=== PATIENT | female | born 1995 | race Caucasian/White ===

== ENCOUNTER 2017-11-02 22:30 | Outpatient (CLI) | payer MEDICAID ==
[2017-11-02 23:26] LABS: ADD UMIC YES; UR ASCORBIC ACID NEGATIVE (NEGATIVE); UR BACTERIA FEW /HPF (NONE SEEN); UR BILIRUBIN (Dip) NEGATIVE (NEGATIVE); UR BLOOD (Dip) NEGATIVE (NEGATIVE); UR CLARITY SLIGHTLY CLOUDY (CLEAR); UR COLOR YELLOW (YELLOW); UR GLUCOSE (Dip) NEGATIVE (NEGATIVE); UR KETONES (Dip) NEGATIVE (NEGATIVE); UR LEUKOCYTE ESTERASE (Dip) 2+ Leu/ul (NEGATIVE); UR NITRITE (Dip) NEGATIVE (NEGATIVE); UR RBC 2 /HPF (0-5); UR SQUAMOUS EPITHELIAL CELL FEW /HPF (FEW); UR TOTAL PROTEIN (Dip) 1+ mg/dl (NEGATIVE); UR UROBILINOGEN (Dip) NEGATIVE (NEGATIVE); UR WBC 34 /HPF (0-5)
[2017-11-02] MEDS: ACETAMINOPHEN 325 MG TAB PO (23:54)
[2017-11-03 05:51] LABS: ADD MAN DIFF? NO
[2017-11-03 05:58] LABS: WHITE BLOOD COUNT 11.8 10^3/ul (4.8-10.8)
[2017-11-03 05:58] LABS: BASOPHILS % 0.3 % (0.0-2.0); HEMATOCRIT 29.7 % (37.0-47.0); HEMOGLOBIN 9.9 g/dl (12.0-16.0); LYMPHOCYTES # 1.2 10^3/ul (0.8-2.9); LYMPHOCYTES % 9.9 % (15.0-51.0); MEAN CORPUSCULAR HEMOGLOBIN 29.1 pg (29.0-33.0); MEAN CORPUSCULAR HGB CONC 33.3 g/dl (32.0-37.0); MEAN CORPUSCULAR VOLUME 87.4 fl (82.0-101.0); MEAN PLATELET VOLUME 10.6 fl (7.4-10.4); MONOCYTE # 0.9 10^3/ul (0.3-0.9); MONOCYTES % 7.2 % (0.0-11.0); NEUTROPHIL # 9.7 10^3/ul (1.6-7.5); NEUTROPHILS % 82.2 % (39.0-77.0); PLATELET COUNT 242 10^3/UL (140-415); RED CELL DISTRIBUTION WIDTH 14.6 % (11.5-14.5)
== END 2017-11-03 06:40 | disposition home or self-care (01) ==
LOC: OBT 22:30 → L-D 22:31
DX: O26.892 Other specified pregnancy related conditions, second trimester (principal); Z3A.21 21 weeks gestation of pregnancy; R10.2 Pelvic and perineal pain
CPT/HCPCS: 36415; 76705; 81001; 85025; 87086

== ENCOUNTER 2017-11-06 07:59 | Inpatient (IN) | payer MEDICAID ==
[2017-11-06 08:39] LABS: ADD MAN DIFF? NO
[2017-11-06] MEDS: ACETAMINOPHEN 500 MG TAB PO (08:41)
[2017-11-06 08:43] LABS: ABNORMAL IP MESSAGE 1; BASOPHILS % 0.1 % (0.0-2.0); HEMATOCRIT 30.8 % (37.0-47.0); HEMOGLOBIN 10.4 g/dl (12.0-16.0); LYMPHOCYTES # 0.6 10^3/ul (0.8-2.9); LYMPHOCYTES % 4.1 % (15.0-51.0); MEAN CORPUSCULAR HEMOGLOBIN 28.9 pg (29.0-33.0); MEAN CORPUSCULAR HGB CONC 33.8 g/dl (32.0-37.0); MEAN CORPUSCULAR VOLUME 85.6 fl (82.0-101.0); MEAN PLATELET VOLUME 10.9 fl (7.4-10.4); MONOCYTE # 1.1 10^3/ul (0.3-0.9); NEUTROPHIL # 11.9 10^3/ul (1.6-7.5); NEUTROPHILS % 87.4 % (39.0-77.0); PLATELET COUNT 185 10^3/UL (140-415); RED CELL DISTRIBUTION WIDTH 14.6 % (11.5-14.5)
[2017-11-06 08:43] LABS: WHITE BLOOD COUNT 13.6 10^3/ul (4.8-10.8)
[2017-11-06] MEDS: SODIUM CHLORIDE 0.9% 1L BAG IV* (08:43)
[2017-11-06 08:58] LABS: INR 1.01; PROTIME 13.4 Sec (11.9-14.9)
[2017-11-06 08:59] LABS: ALANINE AMINOTRANSFERASE 20 IU/L (13-69); ALBUMIN 3.3 g/dl (3.3-4.9); ALBUMIN/GLOBULIN RATIO 0.91; ALKALINE PHOSPHATASE 99 IU/L (42-121); ANION GAP 14 (8-16); ASPARTATE AMINO TRANSFERASE 24 IU/L (15-46); BILIRUBIN,INDIRECT 0.4 mg/dl (0-1.1); BILIRUBIN,TOTAL 0.4 mg/dl (0.2-1.3); BLOOD UREA NITROGEN 4 mg/dl (7-20); CALCIUM 8.1 mg/dl (8.4-10.2); CARBON DIOXIDE 22 mmol/L (21-31); CHLORIDE 97 mmol/L (97-110); CREATININE 0.53 mg/dl (0.44-1.00); GLUCOSE 105 mg/dl (70-220); POTASSIUM 3.1 mmol/L (3.5-5.1); SODIUM 130 mmol/L (135-144); TOTAL PROTEIN 6.9 g/dl (6.1-8.1)
[2017-11-06 09:00] LABS: POSITIVE DIFF @See below
[2017-11-06 09:09] LABS: LACTIC ACID 0.9 mmol/L (0.5-2.0)
[2017-11-06 09:10] LABS: TROPONIN-I < 0.010 ng/ml (0.000-0.120)
[2017-11-06 09:21] LABS: PARTIAL THROMBOPLASTIN TIME 35.8 Sec (25.0-35.0)
[2017-11-06] MEDS ORDERED: ONDANSETRON 4 MG INJ IV (10:00)
[2017-11-06] MEDS ORDERED: ACETAMINOPHEN 325 MG TAB PO (10:00)
[2017-11-06] MEDS: CEFTRIAXONE 2 GM/50 ML (PMX) 50 ML IVPB (10:04)
[2017-11-06 10:19] LABS: ADD UMIC YES; UR ASCORBIC ACID NEGATIVE (NEGATIVE); UR BACTERIA MANY /HPF (NONE SEEN); UR BILIRUBIN (Dip) NEGATIVE (NEGATIVE); UR BLOOD (Dip) NEGATIVE (NEGATIVE); UR CLARITY SLIGHTLY CLOUDY (CLEAR); UR COLOR YELLOW (YELLOW); UR GLUCOSE (Dip) NEGATIVE (NEGATIVE); UR KETONES (Dip) 2+ mg/dL (NEGATIVE); UR LEUKOCYTE ESTERASE (Dip) NEGATIVE Leu/ul (NEGATIVE); UR NITRITE (Dip) POSITIVE (NEGATIVE); UR RBC 1 /HPF (0-5); UR SPECIFIC GRAVITY (Dip) 1.005 (1.003-1.030); UR SQUAMOUS EPITHELIAL CELL FEW /HPF (FEW); UR TOTAL PROTEIN (Dip) NEGATIVE (NEGATIVE); UR UROBILINOGEN (Dip) NEGATIVE (NEGATIVE); UR WBC 4 /HPF (0-5)
[2017-11-06] MEDS: VANCOMYCIN 1 GM (PMX) 250 ML IVPB (10:26)
[2017-11-06] MEDS ORDERED: NA PHOSPHATE/BIPHOS 133 ML ENEMA PR (11:30)
[2017-11-06] MEDS ORDERED: LORAZEPAM 2 MG INJ IV (11:30)
[2017-11-06] MEDS ORDERED: morphine 2 MG INJ IV (11:30)
[2017-11-06] MEDS ORDERED: NACL 0.9% 3 ML SYG IV (11:30)
[2017-11-06] MEDS ORDERED: MAGNESIUM HYDROXIDE 30ML CUP PO (11:30)
[2017-11-06] MEDS ORDERED: VANCOMYCIN IV PER PHARMACY XX (12:00)
[2017-11-06 14:07] LABS: INR 1.02; PROTIME 13.5 Sec (11.9-14.9); PT RATIO 1.1
[2017-11-06 14:08] LABS: LACTIC ACID 0.6 mmol/L (0.5-2.0)
[2017-11-06 14:08] LABS: PARTIAL THROMBOPLASTIN TIME 35.1 Sec (25.0-35.0)
[2017-11-06] MEDS: ACETAMINOPHEN 325 MG TAB PO (16:25)
[2017-11-06] MEDS: VANCOMYCIN 1 GM in 250 ML IVPB (16:26)
[2017-11-06 17:59] LABS: LACTIC ACID 0.9 mmol/L (0.5-2.0)
[2017-11-06] MEDS: HYDROCODONE/APAP (5/325) TAB PO (18:26)
[2017-11-06] MEDS: SOD CHLORIDE 0.9% 250 ML IV (19:40)
[2017-11-06] MEDS: GENTAMICIN 120 MG/NS (PMX) 100 ML IVPB (19:40)
[2017-11-06] MEDS: SOD CHLORIDE 0.45% 1,000 ML IV (19:43)
[2017-11-06] MEDS: POTASSIUM CHLORIDE (SR) 20 MEQ TAB PO (22:02)
[2017-11-07] MEDS: VANCOMYCIN 1 GM in 250 ML IVPB ×2 (00:23→08:47)
[2017-11-07] MEDS: ACETAMINOPHEN 325 MG TAB PO (00:25)
[2017-11-07] MEDS: SOD CHLORIDE 0.9% 250 ML IV (00:52)
[2017-11-07] MEDS: SOD CHLORIDE 0.45% 1,000 ML IV ×2 (03:30→05:06)
[2017-11-07] MEDS: HYDROCODONE/APAP (5/325) TAB PO ×3 (03:47→23:19)
[2017-11-07 05:43] LABS: ADD MAN DIFF? NO
[2017-11-07 05:56] LABS: BASOPHILS % 0.2 % (0.0-2.0); HEMATOCRIT 26.1 % (37.0-47.0); HEMOGLOBIN 8.8 g/dl (12.0-16.0); LYMPHOCYTES # 0.6 10^3/ul (0.8-2.9); LYMPHOCYTES % 5.7 % (15.0-51.0); MEAN CORPUSCULAR HEMOGLOBIN 29.5 pg (29.0-33.0); MEAN CORPUSCULAR HGB CONC 33.7 g/dl (32.0-37.0); MEAN CORPUSCULAR VOLUME 87.6 fl (82.0-101.0); MEAN PLATELET VOLUME 10.6 fl (7.4-10.4); MONOCYTE # 0.7 10^3/ul (0.3-0.9); MONOCYTES % 6.1 % (0.0-11.0); NEUTROPHIL # 9.6 10^3/ul (1.6-7.5); NEUTROPHILS % 87.2 % (39.0-77.0); PLATELET COUNT 168 10^3/UL (140-415); RED BLOOD COUNT 2.98 10^6/ul (4.20-5.40); RED CELL DISTRIBUTION WIDTH 14.9 % (11.5-14.5)
[2017-11-07 06:08] LABS: HEMOGLOBIN A1C 5.2 % (0-5.9)
[2017-11-07 06:21] LABS: ANION GAP 10 (8-16); BLOOD UREA NITROGEN 2 mg/dl (7-20); CALCIUM 7.6 mg/dl (8.4-10.2); CARBON DIOXIDE 19 mmol/L (21-31); CHLORIDE 108 mmol/L (97-110); GLUCOSE 80 mg/dl (70-220); POTASSIUM 3.2 mmol/L (3.5-5.1); SODIUM 134 mmol/L (135-144)
[2017-11-07 06:25] LABS: PHOSPHORUS 2.6 mg/dl (2.5-4.9)
[2017-11-07 06:25] LABS: MAGNESIUM 1.9 mg/dl (1.7-2.5)
[2017-11-07 06:26] LABS: CHOLESTEROL 97 mg/dl (100-200)
[2017-11-07 06:26] LABS: CHOL/HDL RATIO 2.9 RATIO; HDL CHOLESTEROL 33 mg/dl (33-83); LDL CHOLESTEROL,CALCULATED 35 mg/dl; TRIGLYCERIDES 146 mg/dl (0-149)
[2017-11-07 06:45] LABS: THYROID STIMULATING HORMONE 0.608 MIU/L (0.465-4.680)
[2017-11-07 07:45] LABS: VANCOMYCIN,TROUGH 6.6 ug/ml (10.0-20.0)
[2017-11-07] MEDS: CEFTRIAXONE 2 GM/50 ML (PMX) 50 ML IVPB (11:25)
[2017-11-07] MEDS: POTASSIUM CHLORIDE (SR) 20 MEQ TAB PO (11:40)
[2017-11-07] MEDS: ONDANSETRON 4 MG INJ IV (12:05)
[2017-11-07] MEDS ORDERED: VANCOMYCIN 1.5 GM in SOD CHLORIDE 0.9% 250 ML IVPB (16:00)
[2017-11-07 19:35] LABS: RAPID PLASMA REAGIN NONREACTIVE (NR)
[2017-11-08 07:13] LABS: ADD MAN DIFF? NO
[2017-11-08 07:20] LABS: WHITE BLOOD COUNT 8.2 10^3/ul (4.8-10.8)
[2017-11-08 07:20] LABS: BASOPHILS % 0.2 % (0.0-2.0); HEMOGLOBIN 9.6 g/dl (12.0-16.0); LYMPHOCYTES # 0.8 10^3/ul (0.8-2.9); LYMPHOCYTES % 9.8 % (15.0-51.0); MEAN CORPUSCULAR HEMOGLOBIN 28.7 pg (29.0-33.0); MEAN CORPUSCULAR HGB CONC 33.1 g/dl (32.0-37.0); MEAN CORPUSCULAR VOLUME 86.8 fl (82.0-101.0); MEAN PLATELET VOLUME 10.8 fl (7.4-10.4); MONOCYTE # 0.5 10^3/ul (0.3-0.9); MONOCYTES % 6.5 % (0.0-11.0); NEUTROPHIL # 6.8 10^3/ul (1.6-7.5); NEUTROPHILS % 82.8 % (39.0-77.0); PLATELET COUNT 187 10^3/UL (140-415); RED BLOOD COUNT 3.34 10^6/ul (4.20-5.40); RED CELL DISTRIBUTION WIDTH 15.2 % (11.5-14.5)
[2017-11-08] MEDS: CEFTRIAXONE 2 GM/50 ML (PMX) 50 ML IVPB (10:16)
[2017-11-08] MEDS: DOCUSATE SODIUM 100 MG CAP PO (10:17)
[2017-11-08 12:48] LABS: HSV 1 IGG ANTIBODY 3.51 index; HSV 2 IGG ANTIBODY <0.90 index
[2017-11-08] MEDS: HYDROCODONE/APAP (5/325) TAB PO (21:13)
[2017-11-08] MEDS ORDERED: morphine LIQ (10 MG/5 ML) CUP PO (23:00)
[2017-11-09] MEDS: HYDROCODONE/APAP (5/325) TAB PO (10:57)
[2017-11-09] MEDS ORDERED: CEPHALEXIN 500 MG CAP PO (12:00)
[2017-11-09] MEDS: TRIMETHOPRIM/SULFAMETHOX (DS) TAB PO (12:02)
[2017-11-09 16:30] LABS: WEST NILE VIRUS ANTIBODY (IGG) <1.30 index; WEST NILE VIRUS ANTIBODY (IGM) <0.90 index
== END 2017-11-09 16:10 | disposition home or self-care (01) | DRG 781 ==
LOC: E/R 07:59 → 2NE 11-07 14:10 → 6WM 09:33
DX: O98.812 Other maternal infectious and parasitic diseases complicating pregnancy, second trimester (principal); A41.9 Sepsis, unspecified organism; O23.02 Infections of kidney in pregnancy, second trimester; E87.1 Hypo-osmolality and hyponatremia; N10 Acute pyelonephritis; O99.282 Endocrine, nutritional and metabolic diseases complicating pregnancy, second trimester; E87.6 Hypokalemia; Z3A.22 22 weeks gestation of pregnancy; B96.20 Unspecified Escherichia coli [E. coli] as the cause of diseases classified elsewhere
CPT/HCPCS: 36415; 71045; 72195; 74181; 76700; 76705; 76805; 80048; 80053; 80061; 80202; 81001; 83036; 83605; 83735; 84100; 84439; 84443; 84484; 84702; 85025; 85610; 85730; 86592; 86692; 86788; 86789; 87040; 87086; 93005; 99291-25

== ENCOUNTER 2018-03-15 07:48 | Outpatient (CLI) | payer MEDICAID | END 2018-03-15 11:00 | disposition home or self-care (01) | LOC: OBT 07:48 → L-D 07:49 → OBT 11:00 | DX: O62.9 Abnormality of forces of labor, unspecified (principal); Z3A.40 40 weeks gestation of pregnancy | CPT/HCPCS: 76815; 76818 ==

== ENCOUNTER 2018-03-17 07:58 | Inpatient (IN) | payer MEDICAID ==
[2018-03-17] MEDS ORDERED: MISOPROSTOL 200 MCG TAB PR (10:30)
[2018-03-17] MEDS ORDERED: CARBOPROST 250 MCG INJ IM (10:30)
[2018-03-17] MEDS ORDERED: LIDOCAINE 1% (MPF) 30 ML INJ INJ (10:30)
[2018-03-17] MEDS ORDERED: MISOPROSTOL 100 MCG TAB PO (10:30)
[2018-03-17] MEDS ORDERED: OXYTOCIN 30 UNITS/LR 500 ML IV ×2 (10:30)
[2018-03-17] MEDS ORDERED: METHYLERGONOVINE 0.2 MG INJ IM (10:30)
[2018-03-17 10:34] LABS: ADD MAN DIFF? NO
[2018-03-17 10:40] LABS: WHITE BLOOD COUNT 6.5 10^3/ul (4.8-10.8)
[2018-03-17 10:40] LABS: BASOPHILS % 0.6 % (0.0-2.0); EOSINOPHILS # 0.1 10^3/ul (0.0-0.5); EOSINOPHILS % 0.9 % (0.0-7.0); LYMPHOCYTES # 1.5 10^3/ul (0.8-2.9); LYMPHOCYTES % 23.3 % (15.0-51.0); MEAN CORPUSCULAR HEMOGLOBIN 25.6 pg (29.0-33.0); MEAN CORPUSCULAR HGB CONC 31.3 g/dl (32.0-37.0); MEAN CORPUSCULAR VOLUME 81.8 fl (82.0-101.0); MEAN PLATELET VOLUME 11.6 fl (7.4-10.4); MONOCYTE # 0.3 10^3/ul (0.3-0.9); MONOCYTES % 5.2 % (0.0-11.0); NEUTROPHIL # 4.5 10^3/ul (1.6-7.5); NEUTROPHILS % 69.5 % (39.0-77.0); PLATELET COUNT 274 10^3/UL (140-415); RED BLOOD COUNT 3.91 10^6/ul (4.20-5.40)
[2018-03-17] MEDS: LACTATED RINGER'S 1,000 ML IV ×3 (10:46→23:12)
[2018-03-17 11:04] LABS: PROTIME 12.2 Sec (11.9-14.9)
[2018-03-17 11:05] LABS: PARTIAL THROMBOPLASTIN TIME 30.9 Sec (23.0-35.0)
[2018-03-17] MEDS: MISOPROSTOL 50 MCG CAPSULE PO ×2 (11:40→16:03)
[2018-03-17 11:58] LABS: HEPATITIS B SURFACE ANTIGEN NEGATIVE (NEGATIVE)
[2018-03-17 15:01] LABS: RAPID PLASMA REAGIN NONREACTIVE (NR)
[2018-03-17] MEDS: ACETAMINOPHEN 325 MG TAB PO (17:40)
[2018-03-17 18:31] LABS: ALANINE AMINOTRANSFERASE 15 IU/L (13-69); ALBUMIN 3.4 g/dl (3.3-4.9); ALBUMIN/GLOBULIN RATIO 0.94; ALKALINE PHOSPHATASE 158 IU/L (42-121); ANION GAP 8 (5-13); ASPARTATE AMINO TRANSFERASE 30 IU/L (15-46); BILIRUBIN,INDIRECT 0.2 mg/dl (0-1.1); BILIRUBIN,TOTAL 0.2 mg/dl (0.2-1.3); BLOOD UREA NITROGEN 5 mg/dl (7-20); CALCIUM 8.6 mg/dl (8.4-10.2); CARBON DIOXIDE 23 mmol/L (21-31); CHLORIDE 106 mmol/L (97-110); CREATININE 0.53 mg/dl (0.44-1.00); Estimated GFR > 60 mL/min (>60); GLUCOSE 74 mg/dl (70-220); POTASSIUM 4.2 mmol/L (3.5-5.1); SODIUM 137 mmol/L (135-144); URIC ACID 4.9 mg/dl (3.1-7.9)
[2018-03-17] MEDS: BUTORPHANOL 2 MG INJ IV (21:48)
[2018-03-18] MEDS: BUTORPHANOL 2 MG INJ IV (00:07)
[2018-03-18] MEDS: LACTATED RINGER'S 1,000 ML IV ×4 (04:55→17:32)
[2018-03-18] MEDS ORDERED: FENTAnyl 2MCG/ML-ROPIV 0.2% 100 ML (05:06)
[2018-03-18] MEDS ORDERED: NALOXONE (0.4 MG/ML) INJ IV (05:30)
[2018-03-18] MEDS ORDERED: ONDANSETRON 4 MG INJ IV (05:30)
[2018-03-18] MEDS ORDERED: DIPHENHYDRAMINE 50 MG INJ IV (05:30)
[2018-03-18] MEDS: OXYTOCIN 30 UNITS/LR 500 ML IV ×2 (10:21→19:21)
[2018-03-18] MEDS: FENTAnyl 2MCG/ML-ROPIV 0.2% 100 ML BAG EPI (12:40)
[2018-03-18] MEDS ORDERED: MINERAL OIL LIGHT 10 ML VIAL (15:08)
[2018-03-18] MEDS ORDERED: AMPICILLIN 2 GM/NS (PMX) 100 ML (17:48)
[2018-03-18] MEDS: AMPICILLIN 2 GM/NS (PMX) 100 ML IVPB (17:50)
[2018-03-18] MEDS: MINERAL OIL LIGHT 10 ML VIAL TOP (18:30)
[2018-03-18] MEDS ORDERED: ZOLPIDEM 5 MG TAB PO (21:30)
[2018-03-18] MEDS ORDERED: CARBOPROST 250 MCG INJ IM (21:30)
[2018-03-18] MEDS ORDERED: MISOPROSTOL 200 MCG TAB PR (21:30)
[2018-03-18] MEDS ORDERED: METHYLERGONOVINE 0.2 MG INJ IM (21:30)
[2018-03-18] MEDS ORDERED: OXYTOCIN 30 UNITS/LR 500 ML IV (21:30)
[2018-03-18] MEDS ORDERED: OXYCODONE/ASPIRIN (4.88/325) TAB PO ×2 (21:30)
[2018-03-18] MEDS: IBUPROFEN 600 MG TAB PO (23:22)
[2018-03-18] MEDS: LANOLIN HPA 1 PKT TOP (23:22)
[2018-03-18] MEDS: BENZOCAINE 20% 56 ML SPRAY TOP (23:23)
[2018-03-18] MEDS: WITCH HAZEL/GLYCERIN PAD PR (23:23)
[2018-03-19] MEDS: IBUPROFEN 600 MG TAB PO ×4 (05:27→23:42)
[2018-03-19 07:26] LABS: ADD MAN DIFF? NO
[2018-03-19 07:30] LABS: BASOPHIL # 0.1 10^3/ul (0.0-0.1); BASOPHILS % 0.4 % (0.0-2.0); EOSINOPHILS # 0.1 10^3/ul (0.0-0.5); EOSINOPHILS % 0.8 % (0.0-7.0); HEMATOCRIT 27.4 % (37.0-47.0); HEMOGLOBIN 8.6 g/dl (12.0-16.0); LYMPHOCYTES # 1.9 10^3/ul (0.8-2.9); MEAN CORPUSCULAR HEMOGLOBIN 25.2 pg (29.0-33.0); MEAN CORPUSCULAR HGB CONC 31.4 g/dl (32.0-37.0); MEAN CORPUSCULAR VOLUME 80.4 fl (82.0-101.0); MEAN PLATELET VOLUME 11.6 fl (7.4-10.4); MONOCYTE # 0.6 10^3/ul (0.3-0.9); MONOCYTES % 3.9 % (0.0-11.0); NEUTROPHIL # 11.8 10^3/ul (1.6-7.5); NEUTROPHILS % 81.3 % (39.0-77.0); PLATELET COUNT 206 10^3/UL (140-415); RED BLOOD COUNT 3.41 10^6/ul (4.20-5.40); RED CELL DISTRIBUTION WIDTH 15.4 % (11.5-14.5)
[2018-03-19 07:30] LABS: WHITE BLOOD COUNT 14.5 10^3/ul (4.8-10.8)
[2018-03-19] MEDS: SENNA/DOCUSATE NA (8.6MG/50MG) TAB PO ×2 (09:12→21:50)
[2018-03-20] MEDS: IBUPROFEN 600 MG TAB PO ×2 (05:49→12:26)
[2018-03-20] MEDS: DIPHTH/TET/ACEL PERTUSS (ADULT) 0.5 ML VIAL IM* (09:00)
[2018-03-20] MEDS: SENNA/DOCUSATE NA (8.6MG/50MG) TAB PO (09:33)
== END 2018-03-20 15:41 | disposition home or self-care (01) | DRG 807 ==
LOC: L-D 07:58 → PP1 03-18 20:50
PROVIDERS: Obstetrics & Gynecology
PROC: 3E033VJ Introduction of Other Hormone into Peripheral Vein, Percutaneous Approach (ICD-10-PCS; 2018-03-17)
PROC: 10E0XZZ Delivery of Products of Conception, External Approach (ICD-10-PCS; principal; 2018-03-18)
DX: O80 Encounter for full-term uncomplicated delivery (principal); Z37.0 Single live birth; Z3A.40 40 weeks gestation of pregnancy
CPT/HCPCS: 80053; 84560; 85025; 85610; 85730; 86592; 86850; 86900; 86901; 87340